=== PATIENT | female | born 1955 | race Caucasian/White ===

== ENCOUNTER → 2016-07-24 | Outpatient (CLI) | payer BC ==
[~2016-07-24] MED LIST: PULMICORT90 MCG/Act IH; SYMBICORT1 AE3 IH; TYLENOL 325MG325 MG PO; VENTOLIN0.09 MG IH; VITAMIN D32000 IU PO; [UNRECOGNIZED DRUG - OTHER] PO
== END ==
LOC: COL.RAD 08:01
DX: R68.81 Early satiety (principal)
CPT/HCPCS: A9541

== ENCOUNTER → 2018-04-06 | Outpatient (CLI) | payer BC | LOC: MC.RAD 13:14 | DX: Z12.31 Encounter for screening mammogram for malignant neoplasm of breast (principal) ==

== ENCOUNTER → 2020-04-13 | Outpatient (CLI) | payer BC | LOC: MC.RAD 12:56 | DX: N64.89 Other specified disorders of breast (principal) ==

== ENCOUNTER 2024-03-08 08:18 | Day surgery (SDC) | payer MEDICARE, OTHER ==
[~2024-03-08] VITALS: Ht 165.1 cm; Wt 58.2 kg
[~2024-03-08 08:18] MED LIST changes: +LR 1,000 ML IV SCH; +Ondansetron 4 MG/2 ML VIAL IV PRN; -VITAMIN D32000 IU PO; +VITAMIND3 5000 PO
[2024-03-08] MEDS ORDERED: MULTIPLE VITAMI1 CAP PO (09:22)
[2024-03-08] MEDS ORDERED: PROBIOTIC BLEN1 EACH PO (09:22)
[2024-03-08] MEDS ORDERED: Lidocaine PF 2% (20 MG/ML) 5 ML VIAL ONE (09:59)
[2024-03-08] MEDS ORDERED: fentaNYL 50 MCG/ML 2 ML VIAL ONE (09:59)
[2024-03-08 10:37] VITALS: BP 88/64; PULSE 61
[2024-03-08 10:50] VITALS: BP 97/71; PULSE 62
[2024-03-08 11:05] VITALS: BP 104/74; PULSE 64
[2024-03-08 13:35] VITALS: BP 108/75; PULSE 73; TEMP 97.6
--- NOTE | 2024-03-08 14:44 | NUR ---
1037 PATIENT RETUR[place] [facility] [place]. PT AWAKE AND ALERT. RESPIRATIONS UNLABORED. AMBULATED TO RECLINER CHAIR WITH 2:1 SBA. PT DENIES NAUSEA OR ABDOMINAL PAIN. HOOKED UP TO MONITOR AND VS OBTAINED. CALL LIGHT AT SIDE AND PRESENT. 1040 PATIENT TOLERATING COFFEE AND MUFFIN WITHOUT NAUSEA OR DIFFICULTY SWALLOWING. 1050 IN ROOM SPEAKING WITH PATIENT. 1100 D/C INSTRUCTIONS REVIEWED WITH PATIENT. PT VERBALIZED UNDERSTANDING AND A COPY OF INSTRUCTIONS PROVIDED IN D/C FOLDER. 1105 PATIENT DRESSES SELF. 1115 PATIENT DISCHARGED FROM UNIT VIA W/C TO A PERSONAL VEHICLE. PT LEFT HOSPITAL IN STABLE CONDITION.
== END 2024-03-08 11:15 | disposition home or self-care (01) ==
LOC: SDCO 08:18
DX: K63.5 Polyp of colon (principal); K64.0 First degree hemorrhoids; K57.30 Diverticulosis of large intestine without perforation or abscess without bleeding; K21.9 Gastro-esophageal reflux disease without esophagitis; Z87.19 Personal history of other diseases of the digestive system
CPT/HCPCS: J2704; J3010; J7120